=== PATIENT | male | born 1950 | race Caucasian/White ===

== ENCOUNTER → 2020-04-02 | Outpatient (CLI) | payer MEDICARE, OTHER ==
[~2020-04-02] MED LIST: CLARITIN10 MG PO; ELIQUIS2.5 MG PO; MOBIC15 MG PO; NORVASC10 MG PO; TRAMADOL-ACETA1 EACH PO; ZESTRIL40 MG PO
== END ==
LOC: KOH-I 08:30
DX: I10 Essential (primary) hypertension (principal)
CPT/HCPCS: 76706-PO

== ENCOUNTER → 2020-04-26 | Outpatient (CLI) | payer MEDICARE, OTHER | LOC: HEART 5 04-04 10:00 → ECHO 10:00 | DX: R94.31 Abnormal electrocardiogram [ECG] [EKG] (principal); R93.1 Abnormal findings on diagnostic imaging of heart and coronary circulation; I08.0 Rheumatic disorders of both mitral and aortic valves | CPT/HCPCS: ECHO; 93306 ==

== ENCOUNTER → 2020-05-09 | Outpatient (CLI) | payer MEDICARE, OTHER | LOC: HEART 5 07:45 | DX: R93.1 Abnormal findings on diagnostic imaging of heart and coronary circulation (principal); I25.9 Chronic ischemic heart disease, unspecified | CPT/HCPCS: 78452; A9502; J2785 ==